=== PATIENT | female | born 1950 | race Caucasian/White ===

== ENCOUNTER 2019-11-29 10:42 | Inpatient (IN) | payer OTHER ==
[~2019-11-29] VITALS: Ht 160 cm; Wt 99.8 kg
[2019-11-29 10:44] VITALS: BP 115/52
[2019-11-29 11:33] LABS: CALCIUM 8.4 mg/dL (8.5-10.1); CREATININE 2.9 mg/dL (0.6-1.0); POTASSIUM 5.2 mmol/L (3.5-5.1)
[2019-11-29 11:37] LABS: HEMATOCRIT 32.5 % (37.0-47.0); HEMOGLOBIN 10.5 gm/dL (12.0-15.0); MCH 31.8 pg (26.0-34.0); MCHC 32.2 g/dL (28.0-37.0); MCV 98.9 fL (80.0-100.0); PLATELET COUNT 361 thou/uL (150-400); RBC 3.29 mil/uL (4.20-5.00); RDW 14.6 % (10.5-14.5); WBC 13.2 thou/uL (4.0-11.0)
[2019-11-29 12:17] LABS: ABSOLUTE NEUTROPHILS 10.8 thou/uL (1.4-8.2); METAMYELOCYTES 3 %; MYELOCYTES 1 %; PLATELET ESTIMATE NORMAL
[2019-11-29 12:18] LABS: ANISOCYTOSIS SLIGHT; TOXIC GRANULATION SLIGHT
[2019-11-29 16:45] VITALS: BP 121/60
[2019-11-29] MEDS ORDERED: LIPITOR40 MG PO (16:46)
[2019-11-29] MEDS ORDERED: TYLENOL325 M1 PO (16:46)
[2019-11-29] MEDS ORDERED: CULTURELLE KID1 EAC1 PO (16:46)
[2019-11-29] MEDS ORDERED: COLACE100 MG PO (16:46)
[2019-11-29] MEDS ORDERED: KEFLEX500 M2 PO (16:47)
[2019-11-29] MEDS ORDERED: DOXYCYCLINE 10100 M2 PO (16:47)
[2019-11-29] MEDS ORDERED: GLIPIZIDE 10 MG10 MG PO (16:47)
[2019-11-29] MEDS ORDERED: LASIX 40 MG TAB40 MG PO (16:48)
[2019-11-29] MEDS ORDERED: NORCO 5-325 TA1 EAC1 PO (16:48)
[2019-11-29] MEDS ORDERED: NYSTATIN1 EA10 TOP (16:48)
[2019-11-29] MEDS ORDERED: KLOR-CON 10 ER10 MEQ PO (16:49)
[2019-11-29] MEDS ORDERED: VITAMIN C500 M2 PO (16:49)
[2019-11-29] MEDS ORDERED: SYNTHROID200 MCG PO (16:49)
[2019-11-29] MEDS ORDERED: SUPER THERAVIT1 EACH PO (16:50)
[2019-11-29 17:20] VITALS: BP 125/48
--- NOTE | 2019-11-29 17:46 | NUR ---
ASHLEIGH AND URSULA BARBER-DAUGHTER [phone] HOME [phone] URSULA CELL PHONE NUMBER
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
[2019-11-29 19:00] VITALS: BP 122/60
--- NOTE | 2019-11-29 19:53 | NUR ---
PATIENT CAME TO UNIT ROOM 435 AT 1815 V.S 98.7 18 98 143/73 O2 SAT 94%RA. PT YELLING AT STAFF THEN FELL ASLEEP.
--- NOTE | 2019-11-30 03:00 | NUR ---
PT TO UNIT RIGHT BEFORE SHIFT CHANGE. PT IS NONCOMPLIANT WITH CARES AND REFUSES JUST ABOUT EVERYTHING. WOULD NOT ALLOW HER BS TO BE CHECK, REFUSED HEPARIN INJECTION. IAN YELLS OUT, SHOUTING "HELP" "OH GOD" AND WHEN ASKED WHAT SHE NEEDS SHE STATES "I DON'T KNOW, I JUST NEED HELP." SPOKE TO DTR AND SON-IN-LAW FOR ASSISTANCE WITH ADMISSION. THEY STATED THAT THE PT DOES NOT TAKE CARE OF HERSELF WITH HYGIENE, MEDICATION..ETC AND THEN SHE COMES TO THE HOSPITAL, GETS BETTER AND THE CYCLE CONTINUES. PT HAS WOUNDS ON BLE, BUTTOCKS, UNDER THIGHS, AND ON KNEECAPS. PHOTOS WERE TAKEN AND PUT IN CHART - WOUNDS WERE DRESSED WITH XEROFOAM AND GAUZE. FAMILY STATES AT THE FACILITY SHE IS SUPPOSED TO BE GETTING UP BUT REFUSES TO. 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 CURRENTLY IN BED RESTING AFTER PAIN MEDS WERE GIVEN. CORMIER CATHETER IN PLACE, PATENT WITH GOOD OUTPUT. WILL CONTINUE TO MONITOR THROUGHOUT THE NIGHT.
[2019-11-30 07:16] VITALS: BP 102/62
[2019-11-30 07:54] VITALS: BP 133/56
[2019-11-30 09:41] LABS: HEMATOCRIT 26.1 % (37.0-47.0); MCH 31.4 pg (26.0-34.0); MCHC 32.3 g/dL (28.0-37.0); MCV 97.3 fL (80.0-100.0); RBC 2.68 mil/uL (4.20-5.00); RDW 14.1 % (10.5-14.5); WBC 11.7 thou/uL (4.0-11.0)
[2019-11-30 09:48] LABS: CREATININE 2.6 mg/dL (0.6-1.0); POTASSIUM 4.9 mmol/L (3.5-5.1)
[2019-11-30 10:06] LABS: HEMOGLOBIN 8.4 gm/dL (12.0-15.0)
--- NOTE | 2019-11-30 16:50 | NUR ---
Assumed care of pt at 0700. Pt yells out and refuses treatment. Dressings removed from wound doctor and toni godfrey. Pt refuses dressing change. secretary referes to nurse that when fingerprint technician went in room, pt refused it and stated she just wants a gun or a pill to end her life. Nurse not present in room at that time. Provider made aware. House sup made aware. Psych consulted, they would not be able to see pt till tomorrow. Provider called and stated he si ok with patient not having sitter in the room. Fall precautions in place. Will continue to monitor.
[2019-11-30 20:50] VITALS: BP 127/74
--- NOTE | 2019-12-01 00:44 | NUR ---
ASSESSMENT COMPLETED AT THE START OF SHIFT. PT YELLING "GOD PLEASE HELP ME" BUT THEN REFUSES ANY CARE.SHE WAS GIVEN HYDROCODONE FOR ALL OVER PAIN. PT NOTED TO HAVE A DRY COUGH, SHE REFUSES THE COUGH SYRUP AND SAYS SHE WANTS A PILL.ARNOLD ALAS ORDERED.BUT THEN SHE DOES NOT WANT TO TAKE IT YET. CORMIER TO D/D WITH DARK YELLOW OUTPUT. SKIN UNDER PANNUS IS A LITTLE RED, I WAS ABLE TO APPLY SOME NYSTATIN CREAM. OPEN BLISTERS TO DIFFERENT PARTS OF THE BODY.PT HAD A SMALL BOWEL MOVEMENT.SHE ACCEPTED TO BE REPOSITIONED AND SEEMS TO BE RESTING 'QUIETLY' AT THIS TIME.CALL LIGHT WITHIN REACH.
[2019-12-01 07:10] VITALS: BP 150/44
--- NOTE | 2019-12-01 09:40 | NUR ---
chart review. tired call pt in room and she did not answer. cm spoke with nursing staff at [facility] in [place], she reported " it been hard to care for her because she often refuse all medication except her pain pills. she refused cares, will sit in her incontinent of urine and bowel, and not allow anyone to clean her up. she refuses to off loads to help protect her skin. she able to feed herself meals. have to use sit to stand with her now since refuses tx to her legs. needs assistance with bathing, and dressing. have not been able to reach family either. doctor here as even had the talk, if going to refuse everything is it time for hospice and ricki has refused that as well"/ [facility] nurse. will cont following as needed for dc needs.
--- NOTE | 2019-12-01 14:27 | NUR ---
FAXED CLINICAL UPDATE TO [facility] RECEIVED CONFIRMATION AND LEFT MSG WITH MEENA IN ADM. DP TO FOLLOW.
--- NOTE | 2019-12-01 16:19 | NUR ---
PT A&OX4. IV INTACT IN L AC. TRANFERES WITH MAX ASSIST. BILAT LOWER EXTREMITIES ARE SWOLLEN RED, WARM TO TOUCH. PT HAS BEEN YELLING OUT THROUGHOUT THE WHOLE DAY AND REFUSING MOSTLY ALL CARES EXCEPT PAIN MEDS. CURSING ALL STAFF. REFUSED FERNANDO GHOSH, DR. SAUNDERS NOTIFIED AND ANGEL NOW DC'D. BED ALARM ON, CALL LIGHT W/I REACH. UDATE GIVEN TO SASHA MASSEY OF [facility] [place].
[2019-12-01 22:28] VITALS: BP 125/64
--- NOTE | 2019-12-02 05:07 | NUR ---
ASSESSED AT START OF SHIFT 1900. PT RESTING IN BED. ON ASSESSEMENT PT REFUSED AID AND THIS NURSE TO CHECK BLOOD SUGAR. ALSO REFUSED NIGHT MED. PT YELLS OUT "LEAVE ME ALONE" "GET OUT" AND SOME CURSED WORDS AT NURSES AND PROFESSOR OF PRACTICE. CALLED ONCEZIO MCRAE AND INFORMED ABOUT PT REFUSAL STATED WILL WILL THE DR KNOW IN THE AM. PT IMPULSIVE AND TRIES TO GET OUT OF BED. ATIVAN GIVENX1. SEVERAL WOUNDS NOTED. FOLLEY INTACT TO D/D. FALL PREC IN PLACE AND WILL CONT WITH POC TILL EOS.
--- NOTE | 2019-12-02 07:44 | HC ---
[facility] [place] [address] CONSULTATION Name: JORGE VELA Room #: 435- ADM IN M.R.#: [id number] Admission: 11/29/19 Attend Phys: Krishna Reina MD Discharge: Date of : 48 Report #: [id number] THIS REPORT FOR: cc: Sherri Ruiz MD,Jesus Russell MD, MD ~ CC: Krishna Ruiz DATE OF SERVICE: 11/30/2019 WOUND CARE CONSULTATION NOTE REASON FOR CONSULTATION: Cellulitis with redness, pain and blistering of bilateral lower extremities. HISTORY OF PRESENT ILLNESS: The patient is a 69-year-old woman transferred from group home due to cellulitis of her legs. Apparently, she has been refusing care. She has had trouble with leg swelling, pain, cellulitis and drainage. She was noted to have some altered mental status. Legs were noted to be cellulitic. Wound Care is consulted. PAST MEDICAL HISTORY: Chronic renal failure and hyperkalemia. ALLERGIES: LISINOPRIL AND PENICILLIN. LABORATORY DATA: Creatinine 2.9. White blood count 13.2. CT scan shows possible right middle lobe infiltrate. MEDICATIONS: At home include Tylenol, Lipitor, Colace, doxycycline, Glucotrol, Keflex, Lasix, Bertrand, potassium, Synthroid, vitamin C. PAST MEDICAL HISTORY: Includes cardiomyopathy, immobility, hypothyroidism, lumbar spondylopathy, chronic kidney disease, history of cerebrovascular disease, morbid obesity, tobacco use, type 2 diabetes. REVIEW OF SYSTEMS: Not obtainable. SOCIAL HISTORY: The patient is an everyday smoker. PHYSICAL EXAMINATION: GENERAL: Shows morbidly obese, elderly woman lying in bed. She is verbally responsive and arousable. HEENT: Mucous membranes are moist. LUNGS: Respirations unlabored. ABDOMEN: Obese. [facility] [address] [place] [address] CONSULTATION Name: JORGE VELA Room #: 435-P [facility] IN ..#: [id number] Admission: 11/29/19 Attend Phys: Krishna Reina MD Discharge: Date of : 48 Report #: [id number] EXTREMITIES: Lower extremity exam shows some edema of both lower extremities. There is redness and cellulitis of both legs with some blistering of the skin with large blisters of the right pretibial area. There is an abrasion of the right second toe. There is blistering of the left great toe. There are blisters around the left ankle, some of the blisters were ruptured. Wound cultures are taken. The patient is tender to touch, she cannot tolerate palpation of pedal pulses. IMPRESSION: 1. Morbid obesity. 2. Diabetes mellitus type 2 with skin ulcerations. 3. Cellulitis of right and left leg with blistering. 4. Rule out arterial insufficiency of lower extremities. PLAN: Wound cultures taken of broken blisters of the right and left leg. Order morphine, Silvadene topical, covered with Xeroform, to change dressings daily. Continue IV antibiotics, vancomycin. We will obtain lower extremity arterial Dopplers of both legs. Rule out arterial insufficiency. Wound care team will follow, legs will be wrapped with morphine, Silvadene, Xeroform, ABD pads and Kerlix. No compression at this point due to cellulitis and pending arterial studies. <ELECTRONICALLY SIGNED> By: Jesus Soto MD 12/02/19 0744 1347 1700 Jesus Soto MD /nt
--- NOTE | 2019-12-02 07:50 | EKG ---
[facility] [place] [address] [address] ELECTROCARDIOGRAM REPORT Name: JORGE VELA Room #: 435-P ADM IN M.R.#: [id number] Admission: 11/29/19 Attend Phys: Krishna Reina MD Discharge: Date of : 48 Report #: [id number] THIS REPORT FOR: cc: Sherri Ruiz MD, Lou K. MD Lundgren, Craig H. 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: Alexandria ALEXANDRE : 1950 Requested By: Surekha Painter Order Number: [id number] MD: Saurav Dias Measurements Intervals [place] Rate: 84 P: 46 UT: 154 QRS: -96 QRSD: 161 T: 61 QT: 433 QTc: 512 Interpretive Statements Sinus rhythm Multiple ventricular premature complexes Right bundle branch block No previous ECG available for comparison Electronically Signed On 12-02-2019 7:48:48 CDT by Saurav Dias [email or web address] <ELECTRONICALLY SIGNED> By: Saurav Dias MD, FACC 12/02/19 0748 1742 1742 Saurav Dias MD, LOCATED WITHIN [facility] /EPI
--- NOTE | 2019-12-02 11:26 | NUR ---
pt to dc back to [facility]. chart copy requested. bedside nurse to call report to [phone]
--- NOTE | 2019-12-02 13:46 | 2DMMODE ---
[facility] [place] [address] 2 D/M-MODE ECHOCARDIOGRAM Name: JORGE VELA Room #: 435-P ADM IN M.R.#: [id number] Admission: 11/29/19 Attend Phys: Krishna Reina MD Discharge: Date of : 48 Report #: [id number] THIS REPORT FOR: cc: Sherri Ruiz MD, Lou K. MD Park, Jin S. MD ~ APPROVED REPORT Study performed: 12/02/2019 11:36:47 EXAM: Comprehensive 2D, Doppler, and color-flow Echocardiogram Patient Location: Bedside Room #: [facility] Status: routine BSA: 2.01 HR: 92 bpm BP: 125/64 mmHg Rhythm: NSR Other Information Study Quality: Fair Indications Congestive Heart Failure 2D Dimensions RVDd: 50.10 mm IVSd: 13.80 (7-11mm) LVOT Diam: 22.39 (18-24mm) LVDd: 61.47 mm PWd: 11.61 (7-11mm) Ascending Ao: 33.15 (22-36mm) LVDs: 55.63 (25-40mm) Aortic Root: 32.52 mm IVC: 26.00 mm Volumes Left Atrial Volume (Systole) Single Plane 4CH: 80.60 mL Single Plane 2CH: 71.77 mL LA ESV Index: 41.00 mL/m2 Aortic Valve AoV Peak Ben.: 1.40 m/s AO Peak Gr.: 7.81 mmHg LVOT Max P.54 mmHg LVOT Max V: 1.07 m/s DREA Vmax: 3.00 cm2 [facility] [address] [place] [address] 2 D/M-MODE ECHOCARDIOGRAM Name: JORGE VELA Room #: 435-P [facility] IN [facility]#: [id number] Admission: 11/29/19 Attend Phys: Krishna Reina MD Discharge: Date of : 48 Report #: [id number] Pulmonary Valve PV Peak Ben.: 1.20 m/s PV Peak Gr.: 5.81 mmHg Tricuspid Valve TR Peak Ben.: 2.83 m/s TR Peak Gr.: 32.08 mmHg PA Pressure: 42.00 mmHg Left Ventricle Left ventricle is dilated. There is hypokinesis of the inferior wall. Mild concentric left ventricular hypertrophy. Left ventricular systolic function is mild to moderately decreased. LVEF is 40%. Mild diastolic dysfunction is present (impaired relaxation pattern). Right Ventricle Right ventricle is dilated. Right ventricle is borderline. Atria Left atrium is dilated. Right atrium is dilated. Aortic Valve The aortic valve is normal in structure. The Aortic valve is sclerotic. Trace aortic regurgitation. There is no aortic valvular stenosis. Mitral Valve The mitral valve is normal in structure. Mild mitral regurgitation. No evidence of mitral valve stenosis. Tricuspid Valve The tricuspid valve is normal in structure. There is mild tricuspid regurgitation. Estimated PAP 42 mmHg. Pulmonic Valve The pulmonary valve is normal in structure. Trace to mild pulmonic regurgitation. Great Vessels The aortic root is normal in size. IVC is dilated and collapses <50% with inspiration. Pericardium There is no pericardial effusion. [facility] [address] [place] [address] 2 D/M-MODE ECHOCARDIOGRAM Name: JORGE VELA Room #: 435-P [facility] IN [facility]#: [id number] Admission: 11/29/19 Attend Phys: Krishna Reina MD Discharge: Date of : 48 Report #: [id number] <Conclusion> Left ventricle is dilated. Left ventricular systolic function is mild to moderately decreased. LVEF is 40%. Right ventricle is dilated. Left atrium is dilated. The Aortic valve is sclerotic. Mild mitral regurgitation. There is mild tricuspid regurgitation. Estimated PAP 42 mmHg. <ELECTRONICALLY SIGNED> By: Ted Yo MD 12/02/19 1344 1344 1344 Ted Yo MD /INF
--- NOTE | 2019-12-02 13:53 | NUR ---
PT DISCHARGING TODAY TO [facility] FAXED DC ORDERS/SUMMARY TO FACILITY SPOKE WITH MODESTO IN ADM SHE RECEIVED ORDERS AND ASKED IF I WOULD SET UP TRANSPORTATION BY AMBULANCE FAXED FORM TO [facility] AND ARRANGED TRANSPORT FOR 1515 TODAY. NOTIFIED PT'S DTR (ASHLEIGH) OF DC AND TIME OF TRANSPORT. UNIT NOTIFIED AND CHART COPY PER US RN TO CALL REPORT TO [phone].
--- NOTE | 2019-12-02 14:03 | NUR ---
ASSUMED CARE OF THE PT AT 0700. PT IS VERY IMPULSIVE AND CURSES AT ALL STAFF AND DOCTORS. PT REFUSED ACCUCHEKS, LOW AIR MATTRESS PUMP, REFUSED LAYA LE LEGS CLEANING AND Q2 TURNS. PT UP WITH ASSIST X1 WITH GAIT BELT, PIVOTS TO CHAIR. PT IS INCONTINENT OF BOWEL. PT TO D/C TODAY. FALL PRECAUTIONS IN PLACE, BED IN THE LOWEST POSITION AND CALL LIGHT IS WITHIN REACH. CONTACTED DAUGHTER ASHLEIGH AND LEFT , WILL CALL AGAIN. WILL CONTINUE TO MONITOR THE PT.
== END 2019-12-02 15:00 | DRG 871 ==
LOC: ER 10:42 → 4S 15:45 → EROBS 15:45 → 4S 17:35
PROVIDERS: Emergency Medicine; ADMIT Hospitalist
DX: A41.9 Sepsis, unspecified organism (principal); R53.2 Functional quadriplegia; L89.313 Pressure ulcer of right buttock, stage 3; L89.323 Pressure ulcer of left buttock, stage 3; G93.41 Metabolic encephalopathy; N17.9 Acute kidney failure, unspecified; L03.116 Cellulitis of left lower limb; I13.0 Hypertensive heart and chronic kidney disease with heart failure and stage 1 through stage 4 chronic kidney disease, or unspecified chronic kidney disease; I42.9 Cardiomyopathy, unspecified; L97.929 Non-pressure chronic ulcer of unspecified part of left lower leg with unspecified severity; L97.919 Non-pressure chronic ulcer of unspecified part of right lower leg with unspecified severity; L03.115 Cellulitis of right lower limb; N18.4 Chronic kidney disease, stage 4 (severe); E87.5 Hyperkalemia; B96.89 Other specified bacterial agents as the cause of diseases classified elsewhere; E66.01 Morbid (severe) obesity due to excess calories; K44.9 Diaphragmatic hernia without obstruction or gangrene; K43.9 Ventral hernia without obstruction or gangrene; F17.210 Nicotine dependence, cigarettes, uncomplicated; M54.5 Low back pain; K59.00 Constipation, unspecified; E11.22 Type 2 diabetes mellitus with diabetic chronic kidney disease; I50.9 Heart failure, unspecified; F32.9 Major depressive disorder, single episode, unspecified; E11.622 Type 2 diabetes mellitus with other skin ulcer; E03.9 Hypothyroidism, unspecified; Z79.899 Other long term (current) drug therapy; Z79.84 Long term (current) use of oral hypoglycemic drugs; Z88.0 Allergy status to penicillin; Z88.8 Allergy status to other drugs, medicaments and biological substances; Z91.018 Allergy to other foods; Z91.09 Other allergy status, other than to drugs and biological substances; Z86.73 Personal history of transient ischemic attack (TIA), and cerebral infarction without residual deficits; Z68.39 Body mass index [BMI] 39.0-39.9, adult; Z91.14 Patient's other noncompliance with medication regimen
CPT/HCPCS: 10195